=== PATIENT | female | born 1960 | race Caucasian/White ===

== ENCOUNTER 2017-11-21 13:40 | Observation (INO) | payer OTHER ==
[2017-11-21 14:57] LABS: Absolute Lymphocytes (CBC) 1.5 K/uL (0.7-4.9); Absolute Monocytes 0.8 K/uL (0.1-1.3); Absolute Neutrophil 8.8 K/uL (1.8-8.0); Basophils % 0.9 % (0-1.3); Eosinophils % 0.3 % (0-4.4); Hematocrit 39.8 % (36.0-45.0); Lymphocytes % 13.5 % (15.3-44.8); MCH 32.1 pg (27.0-35.0); MCV 94.8 fL (80-100); MPV 9.3 fL (7.6-11.3); Monocytes % 7.4 % (3.3-12.3)
[2017-11-21 15:09] LABS: Protime INR 1.08
[2017-11-21] MEDS ORDERED: POLYETHYL GLY 3350 17 GM/DOSE PO PRN (15:15)
[2017-11-21] MEDS ORDERED: ACETAMINOPHEN 325 MG TABLET PO PRN (15:15)
[2017-11-21] MEDS ORDERED: ONDANSETRON 4 MG/2 ML VIAL IV PRN (15:15)
[2017-11-21] MEDS ORDERED: DIPHENHYDRAMINE 25 MG TAB/CAP PO PRN (15:15)
[2017-11-21] MEDS ORDERED: LOPERAMIDE HCL 2 MG CAPSULE PO PRN (15:15)
[2017-11-21] MEDS ORDERED: ONDANSETRON 4 MG (ODT) TAB PO PRN (15:15)
--- NOTE | 2017-11-21 15:41 | RAD REPORT ---
EXAM DESCRIPTION: RAD - Chest Pa And Lat (2 Views) - 11/21/2017 3:22 pm CLINICAL HISTORY: Abdominal pain, flank pain COMPARISON: December 2014 TECHNIQUE: PA and lateral views of the chest were obtained. FINDINGS: The lungs are clear of a focal mass, consolidation or failure. Interstitial markings are p rominent but stable. Heart size is normal and central vasculature is within normal limits. No pleu ral effusion or pneumothorax seen. No acute bony finding noted. No aortic abnormality. IMPRESSION: No acute cardiopulmonary process. Chronic interstitial lung pattern is similar to bautista rison.
[2017-11-21 15:44] LABS: ALT/SGPT 36 IU/L (10-60); AST/SGOT 31 IU/L (10-42); Albumin 4.4 g/dL (3.2-5.5); Alkaline Phosphatase 119 IU/L (42-121); BUN Blood Urea Nitrogen 11 mg/dL (6-20); Bicarbonate 26 mEq/L (21-31); Bilirubin Direct 0.1 mg/dL (0-0.2); Bilirubin Total 0.6 mg/dL (0.3-1.2); Glomerular Filtration Rate > 90 mL/min (=/>90); Glucose Level 127 mg/dL (65-120); Magnesium 1.7 mg/dL (1.8-2.5); Potassium 3.5 mEq/L (3.6-5.0); Sodium Level 140 mEq/L (135-145); Thyroid Stimulating Hormone 0.81 uIU/mL (0.34-5.60)
--- NOTE | 2017-11-21 15:45 | RAD REPORT ---
EXAM DESCRIPTION: CT - Stone Protocol - 11/21/2017 3:12 pm CLINICAL HISTORY: Abdominal pain, right-sided flank pain COMPARISON: CT study August 2008 TECHNIQUE: Axial 5 mm thick images were obtained without oral or IV contrast. The [id number] span s the entirety of the system partially obscuring uppermost abdomen and lung bases. All CT scans are performed using dose optimization technique as appropriate and may include automated exposure control or mA/KV adjustment according to patient size. FINDINGS: Mild right-sided hydronephrosis is present with no new ureteral calculi present. Within th e urinary bladder there is a 5 millimeter calcification. Patient likely has recently passed a stone a nd there is remnant edema or hydronephrosis present. No left-sided hydronephrosis. No obstructing or nonobstructing calculi otherwise noted. No suspicious renal masses. Isodense masses and pyelonephriti s are not excluded on a stone protocol CT scan. Imaged portions of the liver, spleen and pancreas show no suspicious findings on non-contrast imaging . Cholecystectomy clips are present. No biliary tree dilatation. No significant adrenal finding. No suspicious bowel findings. No hernia, mass or bulky lymphadenopathy noted. No free air, free fluid or inflammatory stranding. No significant bony abnormality. IMPRESSION: Mild right-sided hydronephrosis is present with no ureteral calculi present. A 5 mm calcification is present in the urinary bladder likely recently passed from the right ureter. Isodense masses and pyelonephritis are not excluded on stone protocol technique.
[2017-11-21] MEDS ORDERED: D5 0.9 NS 1,000 ML IV SCH (16:00)
[2017-11-21] MEDS ORDERED: ENOXAPARIN 40 MG/0.4 ML SQ SCH (16:00)
[2017-11-21 16:16] LABS: Urine Appearance CLOUDY; Urine Bilirubin NEGATIVE (NEG); Urine Blood 3+ (NEG); Urine Color YELLOW; Urine Glucose NEGATIVE (NEG); Urine Protein TRACE (NEG); Urine Specific Gravity 1.015 (1.005-1.030); Urine Urobilinogen 0.2 mg/dL (0.2-1.0); Urine pH 5.5 (5.0-7.0)
[2017-11-21 16:18] LABS: Urine Microscopic Reflex ORDER UMIC
[2017-11-21 16:45] LABS: Urine Bacteria >50 /HPF (<20); Urine Culture Reflex Order REFLEXED; Urine RBC >50 /HPF (NONE SEEN)
[2017-11-21] MEDS ORDERED: PNEUMOCOCCAL VACCINE 0.5 ML IMVAC ONE (17:00)
--- NOTE | 2017-11-21 20:34 | CON ---
History Of Present Illness: A pleasant 57-year-old lady, who presented with right flank pain of 1 day's duration. She has a history of passing stones in the past. She had an ESWL in the past. This pain came on suddenly, associated with some dysuria. She was camping over the weekend. Apparently, did not drink much and then she told she was having lots of pain. She went to her primary care doctor, Dr. Ruiz, who suggested she got admitted. She got a CT scan showing that she had just passed a stone. A 5 mm stone into the bladder. There are no more stones in the kidneys. There is some hydroureter on the right side. No left-sided hydronephrosis. No obstructing calculi otherwise and there is a 5 mm stone in the bladder, so she is ready for discharge. Past Medical History: Fibromyalgia, kidney stone. No diabetes. No hypertension. No cardiac disease. Past Surgical History: Cholecystectomy, , and ESWL. Allergies: TO PENICILLIN, CAUSES SWELLING ON HIVES. Social History: Tobacco, smoking 1 pack per day x30 years. She is interested in quitting. She has tried Chantix in the past and failed. She drinks wine every day. Family History: was present in the room. He is a patient of mine. Review of Systems: Ten-point review of system is otherwise negative. HEENT: No ear, nose, or throat problems. Cardiac: No MO. Neuro: No neurological deficits. GI: No stomach ulceration or GI bleeds. : As mentioned above. Musculoskeletal: No arthritis, except for fibromyalgia. Hematologic: Negative. Physical Examination: Vital Signs: Pain level was 5/10. General: She is doing well now. No pain. HEENT: Atraumatic and normocephalic. Lungs: Clear. Abdomen: Soft and nontender. No flank tenderness. Extremities: Normal range of motion. Laboratory Data: UA does show positive nitrates. Urine culture is pending. Blood 3+, leukocyte esterase 1+. Chemistries; sodium 140, potassium 3.5, chloride 106, carbon dioxide 26, BUN 11, creatinine 0.64, GFR greater than 90, glucose 127, calcium 9.7, magnesium 1.7. Coagulations normal. Hematology; white count 11.3, H and H 13.5 and 39.8, and platelet count 212. Assessment: Just recently passed right kidney stone. No more stones. Pain is gone. Her urine is positive for nitrate. If her urine culture is pending, we will go ahead and start her on antibiotics, and send her home. We also recommend for her drink half her body in ounces of water per day. KENDRICK/XOCHITL Voice ID: [id number] Report ID: [id number] MARGARETH
[2017-11-21] MEDS ORDERED: TAMSULOSIN 0.4 MG SR CAP PO SCH (21:00)
--- NOTE | 2017-11-22 07:37 | EKG ---
Test Date: 2017-11-21 Test Time: 16:08:24 Pet Care Assistant: JORDYN MEASUREMENT RESULTS: Intervals: Rate: 60 IN: 178 QRSD: 92 QT: 436 QTc: 436 Andrew: P: 51 IN: 178 QRS: 38 T: 54 INTERPRETIVE STATEMENTS: Normal sinus rhythm with sinus arrhythmia Normal ECG Compared to ECG 07/01/2009 14:39:23 No significant changes Electronically Signed On 11-22-17 07:34:57 CDT by Dontae Bennett
[2017-11-23 20:07] LABS: Vitamin D 1,25-Dihydroxy Total 72 pg/mL (18-72); Vitamin D,1,25-OH2, D2 <8 pg/mL
== END 2017-11-21 17:16 | disposition home or self-care (01) ==
LOC: 2ND 13:46
PROVIDERS: ADMIT Internal Medicine; ATTEND Internal Medicine
DX: F17.210 Nicotine dependence, cigarettes, uncomplicated; Z88.0 Allergy status to penicillin; Z85.41 Personal history of malignant neoplasm of cervix uteri; N23 Unspecified renal colic; Z87.442 Personal history of urinary calculi
CPT/HCPCS: 36415; 71046; 74176; 76377; 80048; 80076; 81003; 81015; 82607; 82652; 83735; 84100; 84443; 85025; 85610; 85730; 87040; 87077; 87086; 87088; 87186; 93005; 94760; G0378; J1650